=== PATIENT | male | born 1960 | race Caucasian/White ===

== ENCOUNTER 2021-07-13 14:53 | Emergency (ER) | payer MEDICARE, SELFPAY ==
--- NOTE | 2021-07-13 15:12 | PC.NURSE ---
patient decided he didnt want to be seen, pt states he got stung by a bee and just wanted to sit in our ed wr just in case he was allergic to them pt was speaking in full sentences, refused triage and opted to leave.
== END 2021-07-13 15:26 | disposition left against medical advice (07) ==
PROVIDERS: Emergency Provider Emergency Medicine; PCP Internal Medicine
DX: T63.441A Toxic effect of venom of bees, accidental (unintentional), initial encounter (principal); Y92.9 Unspecified place or not applicable

== ENCOUNTER 2025-02-25 16:00 | Emergency (ER) | payer MEDICARE, SELFPAY ==
--- NOTE | 2025-02-25 16:04 | ED.GENADULT ---
HPI - General Adult General Chief complaint: Allergic Reaction Stated complaint: throat swelling ,allergic reaction Time Seen by Provider: 02/25/25 16:11 Source: patient Mode of arrival: ambulatory Limitations: no limitations History of Present Illness ED Provider: DR. Lawrence HPI narrative: 64-year-old male history of hypertension on lisinopril, last night was working on his motorcycle in his garage, then ate Linda fish then woke up this morning with left-sided facial swelling, lip swelling, tongue swelling, no drooling able to control his secretion, no difficulty swallowing or difficulty breathing at this point. Related Data Previous Rx's ?Medication ?Instructions ?Recorded amlodipine 2.5 mg tablet 2.5 mg PO DAILY #30 tabs 02/25/25 prednisone 20 mg tablet 20 mg PO BID #4 tabs 02/25/25 Allergies Allergy/AdvReac Type Severity Reaction Status Date / Time fish derived [fish] Allergy Anaphylaxis Verified 02/25/25 16:10 shrimp Allergy Anaphylaxis Verified 02/25/25 16:10 Review of Systems Review of Systems: All other systems are reviewed and are negative Constitutional: Reports as per HPI and Reports no additional constitutional complaints Eyes: Reports as per HPI and Reports no additional eye complaints Reports system reviewed and no additional complaints, except as documented Cardiovascular: Reports as per HPI and Reports no additional cardiovascular complaints Respiratory: Reports as per HPI and Reports no additional respiratory complaints Gastrointestinal: Reports as per HPI and Reports no additional gastrointestinal complaints Genitourinary: Reports no additional female genitourinary complaints Musculoskeletal: Reports no additional musculoskeletal complaints Skin/Breast: Reports system reviewed and no additional complaints, except as docu Psychiatric: Reports no additional psychiatric complaints Endocrine: Reports no additional endocrine complaints Hematologic/Lymphatic: Reports no additional hematologic/lymphatic complaints Allergic/Immunologic: Reports no additional allergic/immunologic complaints Reports system reviewed and no additional complaints, except as documented and Reports Abnormal speech present [facility] Social History Social History Advance Directives: No Physical Exam ED Vital Signs: Vital Signs - 24 hr 02/25/25 16:07 02/25/25 16:13 02/25/25 17:22 Temperature 98.1 F 97.7 F Pulse Rate 93 87 75 Respiratory Rate 18 19 Blood Pressure 185/91 H 168/88 H 129/77 Pulse Oximetry 96 95 Oxygen Delivery Method Room Air Room Air 02/25/25 19:04 02/25/25 20:05 Temperature 97.7 F Pulse Rate 79 66 Respiratory Rate 24 H 18 Blood Pressure 115/67 146/75 H Pulse Oximetry 94 96 Oxygen Delivery Method Room Air Room Air BMI result Body Mass Index 29.0 Vital signs have been reviewed and appear to be correct. Blood pressure elevated. Heart rate normal. Respiratory rate normal. Temperature normal. Oxygen saturation normal. Appearance: Alert. Oriented X3. No acute distress. Head: Normal external exam. Normocephalic. Atraumatic. No Yuan signs noted. No raccoon eyes noted Eyes: PERRLA. EOMI. Conjunctiva and sclera normal. Eyelids normal. ENT: TM's Normal. Pharynx normal. Uvula midline. Moist mucous membranes. No trismus noted. No drooling noted. No muffled voice noted. Neck: Normal inspection. Neck supple. FROM. No adenopathy. Thyroid Normal. No meningeal signs. No neck mass noted, no stridor. CVS: Normal heart rate and rhythm. Heart sound normal. No murmurs noted. Pulses normal throughout. Respiratory: No respiratory distress. Painless inspiration. Breath sounds normal. No wheezes/rales/rhonchi noted. Chest nontender. No accessory muscle usage noted or decreased air movement noted. Abdomen: Soft and nontender. Bowel sounds normal in all 4 quadrants. No distention noted. No organomegaly noted. No visible injury noted. Back: No CVA tenderness. Full range of motion noted. Skin: Skin warm and dry. Normal skin color. Normal skin turgor. No rashes/lesions/lacerations noted. Extremities: No lower extremity edema. Extremities exhibit normal range of motion. Extremities nontender. Neuro: Oriented X 3. Cranial nerve exam: II-XII are grossly intact No motor deficit. No sensory deficit. Reflexes normal. Course Course Course Narrative: This is a rapid medical exam performed by Darling Holm NP: Additional HPI, ROS, PE not included below will be deferred to primary provider. Patient is a 64-year-old male with history of HTN on lisinopril presenting to the ED with angioedema, swelling to lips and tongue, worse on left side, took Benadryl [employer]. Known shrimp allergy, ate linda last night prior to onset of symptoms. Plan: gas charger notified, patient brought directly back to main ED Reevaluation(s) Reevaluation #1: Angioedema of lips and tongue has improved significantly, no upper airway compromise, satting 96% on room air. With RR 18. Questionable seafood allergy versus lisinopril causing angioedema. Was instructed to avoid any seafood ingestion and stop taking lisinopril will replace it with amlodipine 2.5 mg daily and patient was instructed to follow-up with his PCP. Instructed to return if worsening of his symptoms. Time: 20:45 Medications Administered Discontinued Medications Generic Name Dose Route Start Last Admin Trade Name Freq PRN Reason Stop Dose Admin Diphenhydramine HCl 50 mg 02/25/25 16:06 02/25/25 16:26 Diphenhydramine Hcl 50 Mg/Ml Vial IVPUSH 02/25/25 16:07 50 mg ONCE ONE Administration Diphenhydramine HCl 25 mg 02/25/25 16:11 02/25/25 16:26 Diphenhydramine Hcl 50 Mg/Ml Vial IVPUSH 02/25/25 16:12 Not Given ONCE ONE Epinephrine 0.3 mg 02/25/25 16:06 02/25/25 16:13 Epinephrine 1 Mg/Ml Vial IM 02/25/25 16:07 0.3 mg STAT STA Administration Epinephrine 0.3 mg 02/25/25 16:11 02/25/25 16:26 Epinephrine 1 Mg/Ml Vial SUBCUT 02/25/25 16:12 Not Given STAT STA Famotidine 20 mg 02/25/25 16:06 02/25/25 16:26 Famotidine/Pf 20 Mg/2 Ml Vial IVPUSH 02/25/25 16:07 20 mg ONCE ONE Administration Famotidine 20 mg 02/25/25 16:11 02/25/25 16:26 Famotidine/Pf 20 Mg/2 Ml Vial IVPUSH 02/25/25 16:12 Not Given ONCE ONE Sodium Chloride 1,000 mls @ 999 mls/hr 02/25/25 16:11 02/25/25 19:03 Ns IV 02/25/25 17:11 Infused .Q1H1M ONE Infusion Methylprednisolone Sodium Succinate 125 mg 02/25/25 16:06 02/25/25 16:26 Methylprednisolone Sod Succ 125 Mg/2 Ml Vial IVPUSH 02/25/25 16:07 125 mg ONCE ONE Administration Methylprednisolone Sodium Succinate 125 mg 02/25/25 16:11 02/25/25 16:26 Methylprednisolone Sod Succ 125 Mg/2 Ml Vial IVPUSH 02/25/25 16:12 Not Given ONCE ONE Prednisone 60 mg 02/25/25 18:51 02/25/25 19:03 Prednisone 20 Mg Tablet PO 02/25/25 18:52 60 mg ONCE ONE Administration Medical Decision Making Differential Diagnosis Differential Diagnoses: The differential diagnosis associated with the presentation includes (Angioedema, airway compromise, seafood allergy, severe anemia, electrolyte derangement.) Admission/Observation Consideration of admission/observation: Escalation of care including admission/observation considered Lab Data MDM Lab Attestation statement: I reviewed the patient's lab results. 02/25/25 16:24 02/25/25 16:24 Labs: Lab Results 02/25/25 Range/Units 16:24 WBC 12.0 H (4.8-10.8) X10*3/uL RBC 4.56 L (4.60-5.80) X10*6/uL Hgb 13.9 L (14.0-18.0) g/dl Hct 41.8 L (42.0-52.0) % MCV 91.7 (80.0-98.0) fL MCH 30.5 (27.0-33.0) pg MCHC 33.3 (31.0-36.0) g/dl RDW 13.6 (11.0-16.0) % Plt Count 288 (160-400) X10*3/uL MPV 9.5 (9.4-12.4) fL Immature Gran % (Auto) 0.5 H (0.0-0.4) % Neut % (Auto) 62.1 (45-73) % Lymph % (Auto) 22.0 (20-40) % Darke % (Auto) 11.1 H (2-11) % Eos % (Auto) 3.6 (0-4) % Baso % (Auto) 0.7 (0-2) % Lymph # (Auto) 2.7 (1.2-4.9) X10*3/uL Darke # (Auto) 1.3 H (0.1-1.2) X10*3/uL Eos # (Auto) 0.4 (0.0-0.4) X10*3/uL Baso # (Auto) 0.1 (0.0-0.2) X10*3/uL Abs Immat Gran (auto) 0.06 H (0.00-0.03) X10*3/uL Absolute Neuts (auto) 7.5 (2.0-8.3) x10*3/uL Absolute Nucleated RBC 0.000 (0.0-0.012) X10*3/uL Nucleated RBC % (auto) 0.0 (0.0-0.2) /100WBC Sodium 138 (135-145) mmol/L Potassium 3.8 (3.3-5.1) mmol/L Chloride 104 (96-108) mmol/L Carbon Dioxide 25 (22-29) mmol/L Anion Gap 13 (12-20) BUN 18 H (9-16) mg/dL Creatinine 0.87 (0.5-1.4) mg/dL Estim Creat Clear Calc 103.7 Estimated GFR > 60 Random Glucose 107 (60-115) mg/dL Calcium 9.1 (8.4-10.2) mg/dL Total Bilirubin 0.8 (0.0-1.0) mg/dL Direct Bilirubin 0.4 (0.0-0.5) mg/dL AST 53 H (5-37) U/L ALT 49 H (0-40) U/L Alkaline Phosphatase 81 (39-117) U/L Troponin I High Sens 2.8 (<3.5-35.0) ng/L B-Natriuretic Peptide 17 (<100) pg/mL Total Protein 8.0 (6.5-8.0) g/dL Albumin 4.0 (3.5-5.0) g/dL Lipase 11 (8-78) U/L Discharge Plan Discharge Clinical Impression: Angioedema Patient Disposition: Home, Self-Care Instructions: Angioedema (ED) Prescriptions: New amlodipine 2.5 mg tablet 2.5 mg PO DAILY Qty: 30 0RF Rx Instructions: Please instruct to stop taking the lisinopril. prednisone 20 mg tablet 20 mg PO BID Qty: 4 0RF Print Language: Indonesian
[2025-02-25 16:07] VITALS: BP 185/91; PULSE 93; RESP 18; TEMP 36.7; O2SAT 96; BMI 29.0
--- NOTE | 2025-02-25 16:11 | ECG_ITS ---
Test Reason : ALLERGIC /R Blood Pressure : */* mmHG Vent. Rate : 75 BPM Atrial Rate : 75 BPM P-R Int : 138 ms QRS Dur : 86 ms QT Int : 394 ms P-R-T Axes : 68 26 62 degrees QTcB Int : 439 ms Normal sinus rhythm with sinus arrhythmia Normal ECG No previous ECGs available Referred By: Michelle Lawrence Electronically Signed By: SARAH SCHERER MD
[2025-02-25 16:13] VITALS: BP 168/88; PULSE 87
[2025-02-25] MEDS: EPINEPHrine 1 MG/ML VIAL 0.3 MG IM (16:13)
[2025-02-25] MEDS: 0.9 % Sodium Chloride 1,000 ML 999 ML IV (16:26)
[2025-02-25] MEDS: methylPREDNISolone Sod Succ 125 MG/2 ML VIAL IVPUSH (16:26)
[2025-02-25] MEDS: Famotidine/PF 20 MG/2 ML VIAL IVPUSH (16:26)
[2025-02-25] MEDS: diphenhydrAMINE HCL 50 MG/ML VIAL IVPUSH (16:26)
[2025-02-25 16:30] LABS: MANUAL DIFF FLAG NO
[2025-02-25 16:45] LABS: Basophils Absolute Auto 0.1 X10*3/uL (0.0-0.2); Basophils Percent Auto 0.7 % (0-2); Eosinophils Absolute Auto 0.4 X10*3/uL (0.0-0.4); Eosinophils Percent Auto 3.6 % (0-4); Hematocrit 41.8 % (42.0-52.0); Hemoglobin 13.9 g/dl (14.0-18.0); Imm Gran Abs Auto 0.06 X10*3/uL (0.00-0.03); Imm Gran Pct Auto 0.5 % (0.0-0.4); Lymphocytes Absolute Auto 2.7 X10*3/uL (1.2-4.9); Mean Corpuscular HGB Conc 33.3 g/dl (31.0-36.0); Mean Corpuscular Hemoglobin 30.5 pg (27.0-33.0); Mean Corpuscular Volume 91.7 fL (80.0-98.0); Mean Platelet Volume 9.5 fL (9.4-12.4); Monocytes Absolute Auto 1.3 X10*3/uL (0.1-1.2); Monocytes Percent Auto 11.1 % (2-11); Neutrophils Absolute Auto 7.5 x10*3/uL (2.0-8.3); Neutrophils Percent Auto 62.1 % (45-73); Platelet Count 288 X10*3/uL (160-400); Red Blood Count 4.56 X10*6/uL (4.60-5.80); Red Cell Distribution Width 13.6 % (11.0-16.0)
[2025-02-25 16:55] LABS: B Type Natriuretic Peptide 17 pg/mL (<100)
[2025-02-25 16:56] LABS: Troponin-I High Sensitivity 2.8 ng/L (<3.5-35.0)
[2025-02-25 16:57] LABS: Alanine Aminotransferase 49 U/L (0-40); Alkaline Phosphatase 81 U/L (39-117); Anion Gap 13 (12-20); Aspartate Amino Transferase 53 U/L (5-37); Bilirubin Direct 0.4 mg/dL (0.0-0.5); Bilirubin Total 0.8 mg/dL (0.0-1.0); Blood Urea Nitrogen 18 mg/dL (9-16); Calcium 9.1 mg/dL (8.4-10.2); Carbon Dioxide 25 mmol/L (22-29); Chloride 104 mmol/L (96-108); Creatinine Clr Calc Pharmacy 103.7; Estimated Glomerular Filt Rate > 60; Glucose Random 107 mg/dL (60-115); Lipase 11 U/L (8-78); Potassium 3.8 mmol/L (3.3-5.1); Sodium 138 mmol/L (135-145)
[2025-02-25 17:22] VITALS: BP 129/77; PULSE 75; RESP 19; TEMP 36.5; O2SAT 95
[2025-02-25] MEDS: predniSONE 20 MG TABLET 60 MG PO (19:03)
[2025-02-25 19:04] VITALS: BP 115/67; PULSE 79; RESP 24; O2SAT 94
[2025-02-25 20:05] VITALS: BP 146/75; PULSE 66; RESP 18; TEMP 36.5; O2SAT 96
[2025-02-25 20:52] VITALS: BP 146/75; PULSE 66; RESP 18; TEMP 36.5; O2SAT 96
== END 2025-02-25 20:53 | disposition home or self-care (01) ==
PROVIDERS: Emergency Provider Emergency Medicine; PCP Internal Medicine
DX: T78.3XXA Angioneurotic edema, initial encounter (principal); X58.XXXA Exposure to other specified factors, initial encounter
CPT/HCPCS: 36415; 80048; 80076; 83690; 83880; 84484; 85025; 93005; 96361; 96372; 96374; 96375; 99284; J0171; J1200; J1308; J2919

== ENCOUNTER → 2025-02-25 16:11 | Outpatient (BNV) | payer MEDICARE, SELFPAY | PROVIDERS: Emergency Provider Emergency Medicine; PCP Internal Medicine; Visit Provider Internal Medicine Cardiovascular Disease | DX: T78.40XA Allergy, unspecified, initial encounter (principal) | CPT/HCPCS: 93010 ==